=== PATIENT | male | born 1995 ===

== ENCOUNTER 2018-07-03 11:09 | Emergency (ER) | payer BC ==
[2018-07-03] MEDS ORDERED: Sodium Chloride 0.9% 1,000 ML IV STA ×2 (12:39→14:21)
[2018-07-03 13:26] LABS: BASO % 0.3 % (0.0-2.0); EOS % 0.2 % (0.0-4.0); HEMOGLOBIN 15.7 g/dL (12.0-18.0); LYMPH # 0.5 K/uL (1.0-4.3); LYMPH % 7.4 % (20.0-40.0); MEAN CELL VOLUME 84.7 fl (80.0-94.0); MEAN CORPUSCULAR HEMOGLOBIN 28.7 pg (27.0-31.0); MEAN CORPUSCULAR HGB CONC 33.9 g/dL (33.0-37.0); MEAN PLATELET VOLUME 9.2 fl (7.2-11.7); MONO # 0.6 K/uL (0.0-0.8); MONO % 8.4 % (0.0-10.0); NEUT # 6.2 K/uL (1.8-7.0); NEUT % 83.7 % (50.0-75.0); NRBC % 0.3 % (0.0-0.0); PLATELET COUNT 191 K/uL (130-400); RBC 5.47 Mil/uL (4.40-5.90); RED CELL DISTRIBUTION WIDTH 13.1 % (11.5-14.5); WHITE BLOOD COUNT 7.3 K/uL (4.8-10.8)
[2018-07-03 13:38] LABS: SQUAMOUS EPITHIAL 1 /hpf (0-5); URINE BACTERIA RARE (<OCC); URINE BILIRUBIN NEGATIVE (NEGATIVE); URINE BLOOD NEGATIVE (NEGATIVE); URINE CLARITY SLIGHTY-CLOUDY (Clear); URINE COLOR YELLOW (YELLOW); URINE GLUCOSE (UA) NEG (NEGATIVE); URINE LEUKOCYTE ESTERASE NEG Leu/uL (Negative); URINE PROTEIN NEGATIVE (NEGATIVE); URINE UROBILINOGEN 0.2-1.0 mg/dL (0.2-1.0)
[2018-07-03 14:00] LABS: ALB/GLOB RATIO 1.4 (1.0-2.1); ALBUMIN 4.7 g/dL (3.5-5.0); ALT/SGPT 37 U/L (21-72); AST/SGOT 38 U/L (17-59); BLOOD UREA NITROGEN 8 mg/dl (9-20); CALCIUM 9.6 mg/dL (8.4-10.2); GFR NON-AFRICAN AMERICAN > 60; LIPASE 61 U/L (23-300)
--- NOTE | 2018-07-03 14:22 | ED PDOC ---
HPI: Abdomen Time Seen by Provider: 07/03/18 12:25 Chief Complaint (Nursing): Abdominal Pain Chief Complaint (Provider): bodyaches/fever History Per: Patient (23 y/o male here with fever/chills/bodyaches/headache/cough x 2 days. No vomiting/diarrhea. Seen at [facility] and noted flu/strep negative. Noted to have abdominal pain and advised evaluation in ED. Patient denies any vomiting/diarrhea. Took 800 mg motrin yesterday for fever.) Past Medical History Reviewed: Historical Data, Nursing Documentation, Vital Signs Vital Signs: Last Vital Signs Temp 100.0 F H 07/03/18 11:13 Pulse 99 H 07/03/18 11:13 Resp 18 07/03/18 11:13 BP 126/74 07/03/18 11:13 Pulse Ox 98 07/03/18 11:13 - Family History Family History: States: No Known Family Hx - Home Medications Home Medications: Ambulatory Orders Medication Instructions Recorded Acetaminophen [Acetaminophen Extra 2 tab PO Q6 PRN #24 tablet 07/03/18 Strength] Famotidine [Pepcid] 20 mg PO BID PRN #10 tab 07/03/18 Ibuprofen [Motrin] 600 mg PO Q8 PRN #21 tab 07/03/18 Oseltamivir Phosphate [Tamiflu] 75 mg PO BID #10 capsule 07/03/18 - Allergies Allergies/Adverse Reactions: Allergies Allergy/AdvReac Type Severity Reaction Status Date / Time No Known Allergies Allergy Verified 07/03/18 12:11 Review of Systems ROS Statement: Except As Marked, All Systems Reviewed And Found Negative Constitutional: Positive for: Fever Respiratory: Positive for: Cough Physical Exam - Reviewed Nursing Documentation Reviewed: Yes Vital Signs Reviewed: Yes - Physical Exam Appears: Positive for: Well, Non-toxic, No Acute Distress Head Exam: Positive for: ATRAUMATIC, NORMAL INSPECTION, NORMOCEPHALIC Skin: Positive for: Normal Color, Warm, DRY Eye Exam: Positive for: EOMI, Normal appearance, PERRL ENT: Positive for: Normal ENT Inspection Neck: Positive for: Normal, Painless ROM Cardiovascular/Chest: Positive for: Regular Rate, Rhythm Respiratory: Positive for: CNT, Normal Breath Sounds Gastrointestinal/Abdominal: Positive for: Normal Exam, Soft, Tenderness (minimal LUQ tenderness noted) Back: Positive for: Normal Inspection Extremity: Positive for: Normal ROM Neurologic/Psych: Positive for: Alert, Oriented - Laboratory Results Result Diagrams: 07/03/18 13:00 07/03/18 13:00 - ECG O2 Sat by Pulse Oximetry: 98 - Progress ED Course And Treament: influenza a/b neg strep rapid neg pepcid 20 mg iv x 1 dose NS 1 liter Repeat exam of abdomen. Nontender abdomen. Patient notes persistent generalized headache. NS 1 liter x 2nd liter. toradol 15 mg iv x 1 dose Disposition - Clinical Impression Clinical Impression: Flu-like symptoms - Patient ED Disposition Is Patient to be Admitted: No - Disposition Disposition: Routine/Home Disposition Time: 15:31 Condition: FAIR Prescriptions: Acetaminophen [Acetaminophen Extra Strength] 2 tab PO Q6 PRN #24 tablet PRN Reason: Fever >100.4 F Famotidine [Pepcid] 20 mg PO BID PRN #10 tab PRN Reason: Pain, Moderate (4-7) Ibuprofen [Motrin] 600 mg PO Q8 PRN #21 tab PRN Reason: Fever >100.4 F Oseltamivir Phosphate [Tamiflu] 75 mg PO BID #10 capsule Instructions: Flu, Adult (DC) Forms: [facility] ED School/Work Excuse
--- NOTE | 2018-07-03 14:43 | RAD ---
Date of service: 07/03/2018 HISTORY: COUGH COMPARISON: No prior. TECHNIQUE: Chest PA and lateral FINDINGS: LUNGS: There appears to be some minor atelectasis both medial lung bases. PLEURA: No significant pleural effusion identified. No pneumothorax apparent. CARDIOVASCULAR: No aortic atherosclerotic calcification present. Normal cardiac size. No pulmonary vascular congestion. OSSEOUS STRUCTURES: No significant abnormalities. VISUALIZED UPPER ABDOMEN: Normal. OTHER FINDINGS: None. IMPRESSION: Minor atelectasis both medial lung bases.
[2018-07-03 15:14] LABS: BASOPHIL 1 % (0-2); LYMPHOCYTE 8 % (20-50); MONOCYTE 8 % (0-10); NEUTROPHIL 82 % (42-75); PLATELET ESTIMATE NORMAL (NORMAL); REACTIVE LYMPHOCYTES 1 % (0-0); TOTAL CELLS COUNTED 100
[2018-07-03 15:21] VITALS: BP 112/58; PULSE 87; RESP 16; TEMP 99.5
[2018-07-03 15:32] VITALS: O2SAT 98
== END 2018-07-03 15:52 | disposition home or self-care (01) ==
LOC: H.ER 11:09
DX: J11.1 Influenza due to unidentified influenza virus with other respiratory manifestations (principal)
CPT/HCPCS: 71046; 80053; 81003; 83690; 85025; 87086; 87804; 96361; 96374; 96375; 99283; J1885; J7030